=== PATIENT | female | born 1975 | race Caucasian/White ===

== ENCOUNTER 2018-01-07 09:19 | Emergency (ER) | payer BC ==
--- NOTE | 2018-01-07 10:19 | EDM.PDOC ---
ED HPI GENERAL MEDICAL PROBLEM - General Chief Complaint: General Stated Complaint: CHEST PAIN YESTERDAY/RT ARM THROBBING Time Seen by Provider: 01/07/18 09:55 Source of Information: Reports: Patient History Limitations: Reports: No Limitations - History of Present Illness INITIAL COMMENTS - FREE TEXT/NARRATIVE: 45-year-old female, otherwise healthy presents with a variety of pain complaints. It started yesterday with left-sided chest discomfort and left eye pain. She did not have significant shortness of breath, pleuritic pain, or cough. The eye pain resolved overnight and the chest pain has lessened, but now she has deep right arm pain especially in the forearm. It hurts to palpate the forearm. She has no bruising, edema, swelling, or recent trauma. Denies nausea or vomiting. She wanted talk to somebody at the clinic so called regarding her symptoms and they sent her to the emergency room. Onset: Sudden (Symptoms started fairly suddenly yesterday afternoon) Location: Reports: Face, Chest, Upper Extremity, Left, Upper Extremity, Right Quality: Reports: Ache, Burning Severity: Moderate Associated Symptoms: Reports: Other (Had some chills overnight). 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 Denies: Fever HEENT: Reports: Eye Pain (Left eye pain yesterday, resolved) Respiratory: Denies: Shortness of Breath, Cough Cardiovascular: Reports: Chest Pain. Denies: Palpitations GI/Abdominal: Denies: Abdominal Pain, Nausea, Vomiting : Reports: No Symptoms Musculoskeletal: Reports: Arm Pain (Bilateral, right worse than left) Skin: Reports: No Symptoms Neurological: Denies: Paresthesia ED EXAM, GENERAL - Physical Exam Exam: See Below Exam Limited By: No Limitations General Appearance: Alert, No Apparent Distress, Anxious Eye Exam: Bilateral Eye: EOMI Head: Atraumatic Neck: Supple Respiratory/Chest: No Respiratory Distress, Lungs Clear, Other (I could reproduce a small amount of left anterior chest wall discomfort with palpation) Cardiovascular: Regular Rate, Rhythm. No: Extra Beats GI/Abdominal: Soft, Non-Tender Extremities: Arm Pain (She has tenderness to palpation of the right forearm especially flexor surface). No: Pedal Edema Neurological: Alert, Oriented, No Motor/Sensory Deficits EKG INTERPRETATION Rhythm: NSR Course - Vital Signs Last Recorded V/S: Last Vital Signs Temp 99.0 F 01/07/18 09:51 Pulse 71 01/07/18 11:12 Resp 18 01/07/18 11:12 BP 94/55 L 01/07/18 11:12 Pulse Ox 100 01/07/18 11:12 - Orders/Labs/Meds Orders: Active Orders 24 hr Category Date Time Status EKG Documentation Completion [RC] ASDIRECTED Care 01/07/18 10:11 Active EKG 12 Lead [EK] Routine Ther 01/07/18 10:10 Ordered Labs: Laboratory Tests 01/07/18 01/07/18 01/07/18 Range/Units 10:31 10:31 10:31 WBC 5.6 (4.5-11.0) K/uL RBC 4.54 (3.30-5.50) M/uL Hgb 12.7 (12.0-15.0) g/dL Hct 38.2 (36.0-48.0) % MCV 84 (80-98) fL MCH 28 (27-31) pg MCHC 33 (32-36) % Plt Count 315 (150-400) K/uL Neut % (Auto) 64 (36-66) % Lymph % (Auto) 26 (24-44) % [place] % (Auto) 7 H (2-6) % Eos % (Auto) 3 (2-4) % Baso % (Auto) 1 (0-1) % ESR 17 (0-25) mm/hr Sodium 139 L (140-148) mmol/L Potassium 4.5 (3.6-5.2) mmol/L Chloride 105 (100-108) mmol/L Carbon Dioxide 26 (21-32) mmol/L Anion Gap 12.5 (5.0-14.0) mmol/L BUN 10 (7-18) mg/dL Creatinine 1.0 (0.6-1.0) mg/dL Est Cr Clr Drug Dosing 64.58 mL/min Estimated GFR (MDRD) > 60 (>60) Glucose 99 (74-106) mg/dL Calcium 8.6 (8.5-10.1) mg/dL Total Bilirubin 0.7 (0.2-1.0) mg/dL AST 18 (15-37) U/L ALT 27 D (12-78) U/L Alkaline Phosphatase 45 L (46-116) U/L Troponin I < 0.017 (0.000-0.056) ng/mL Total Protein 7.3 (6.4-8.2) g/dL Albumin 4.0 (3.4-5.0) g/dL Globulin 3.3 (2.3-3.5) g/dL Albumin/Globulin Ratio 1.2 (1.2-2.2) Urine HCG, Qual 01/07/18 Range/Units 10:59 WBC (4.5-11.0) K/uL RBC (3.30-5.50) M/uL Hgb (12.0-15.0) g/dL Hct (36.0-48.0) % MCV (80-98) fL MCH (27-31) pg MCHC (32-36) % Plt Count (150-400) K/uL Neut % (Auto) (36-66) % Lymph % (Auto) (24-44) % [place] % (Auto) (2-6) % Eos % (Auto) (2-4) % Baso % (Auto) (0-1) % ESR (0-25) mm/hr Sodium (140-148) mmol/L Potassium (3.6-5.2) mmol/L Chloride (100-108) mmol/L Carbon Dioxide (21-32) mmol/L Anion Gap (5.0-14.0) mmol/L BUN (7-18) mg/dL Creatinine (0.6-1.0) mg/dL Est Cr Clr Drug Dosing mL/min Estimated GFR (MDRD) (>60) Glucose (74-106) mg/dL Calcium (8.5-10.1) mg/dL Total Bilirubin (0.2-1.0) mg/dL AST (15-37) U/L ALT (12-78) U/L Alkaline Phosphatase (46-116) U/L Troponin I (0.000-0.056) ng/mL Total Protein (6.4-8.2) g/dL Albumin (3.4-5.0) g/dL Globulin (2.3-3.5) g/dL Albumin/Globulin Ratio (1.2-2.2) Urine HCG, Qual Negative - Re-Assessments/Exams Free Text/Narrative Re-Assessment/Exam: 01/07/18 10:28 EKG was obtained which is normal. CBC, CMP, sedimentation rate and troponin were obtained along with a UA and urine . If the urine is negative we'll proceed with a two-view chest x-ray. 01/07/18 11:58 All labs were negative, sedimentation rate was normal. The two-view chest x-ray was then done which is also normal. Patient will take an anti-inflammatory for a couple of days and return if worsening. Discharged with a diagnosis of atypical chest discomfort. Departure - Departure Time of Disposition: 12:41 Disposition: Home, Self-Care 01 Condition: Good Clinical Impression: Chest pain, atypical - Discharge Information Instructions: Nonspecific Chest Pain, [id number] Referrals: PCP,None [Primary Care Provider] - Forms: ED Department Discharge Care Plan Goals: A regular dose of ibuprofen or naproxen may help over the next several days. Increase activity as tolerated and return anytime if you are worsening or develop other concerns. - My Orders Last 24 Hours: My Active Orders 01/07/18 10:10 EKG 12 Lead [EK] Routine 01/07/18 10:11 EKG Documentation Completion [RC] ASDIRECTED - Assessment/Plan Last 24 Hours: My Active Orders 01/07/18 10:10 EKG 12 Lead [EK] Routine 01/07/18 10:11 EKG Documentation Completion [RC] ASDIRECTED
[2018-01-07 11:13] VITALS: BP 94/55
--- NOTE | 2018-01-07 11:53 | CR ---
Chest 2V HISTORY: Dyspnea COMPARISON: None FINDINGS: Cardiac size and pulmonary vessels normal. There are no infiltrates or effusions. No pneumo thorax. The osseous structures appear normal. IMPRESSION: No acute pulmonary disease.
== END 2018-01-07 12:10 | disposition home or self-care (01) ==
LOC: JP.ED 09:19
DX: R07.89 Other chest pain (principal); Z88.8 Allergy status to other drugs, medicaments and biological substances
CPT/HCPCS: 36415; 71046; 71046-26; 80053; 81025; 84484; 85025; 85651; 93005; 99285-25

== ENCOUNTER 2019-01-30 05:55 | Inpatient (IN) | payer BC, MEDICAID ==
[2019-01-30] MEDS ORDERED: Oxytocin 10 Units/1 ML SDV ONE ×2 (06:37→07:18)
[2019-01-30] MEDS ORDERED: Lactated Ringers 1,000 ML IV SCH (06:50)
[2019-01-30] MEDS ORDERED: Ondansetron 4 MG/2 ML SDV ONE (07:18)
[2019-01-30] MEDS ORDERED: Lactated Ringers 1,000 ML ONE (07:19)
[2019-01-30] MEDS ORDERED: Phenylephrine 1% 10 MG/ML SDV ONE (07:20)
[2019-01-30] MEDS ORDERED: Sodium Chloride 0.9% 20 ML ONE (07:21)
[2019-01-30] MEDS ORDERED: ePHEDrine 50 MG/ML SDV ONE (07:21)
[2019-01-30] MEDS ORDERED: ceFAZolin 1 GM Vial ONE (07:50)
[2019-01-30] MEDS ORDERED: fentaNYL 100 MCG/2 ML SDV ONE ×2 (08:26→08:44)
[2019-01-30] MEDS ORDERED: Ondansetron 4 MG/2 ML SDV IVPUSH PRN (08:59)
[2019-01-30] MEDS ORDERED: Non-Formulary Medication 1 Each (Magnesium [Magnesium] 250 MG) PO SCH (09:00)
[2019-01-30] MEDS ORDERED: Non-Formulary Medication 1 Each (Prenatal Vits #93/Iron Fum/Fa [Prenatal Formula Tablet] 1 PO SCH (09:00)
[2019-01-30] MEDS: fentaNYL 100 MCG/2 ML SDV IVPUSH PRN ×11 (09:34→23:39)
[2019-01-30] MEDS ORDERED: Carboprost Tromethamine 250 MCG/1 ML Amp IM ONE (09:37)
[2019-01-30] MEDS ORDERED: Carboprost Tromethamine 250 MCG/1 ML Amp ONE (09:39)
[2019-01-30] MEDS: Lactated Ringers 1,000 ML IV SCH ×2 (10:13→18:38)
[2019-01-30] MEDS: Labetalol 100 MG Tab PO SCH (10:15)
--- NOTE | 2019-01-30 11:46 | OR ---
DATE OF PROCEDURE: 01/30/2019 PREOPERATIVE DIAGNOSIS: Macrosomia x3 prior pregnancies requiring vacuum extraction, 39 and 1/7th weeks' gestation . POSTOPERATIVE DIAGNOSIS: Macrosomia x3 prior pregnancies requiring vacuum extraction, 39 and 1/7th weeks' gestation . PROCEDURE: section. SURGEON: Juancho Martinez MD. ASSISTANTS: Phyllis Cuello, nurse cripple cutter student; Rosalia Garcia, certified nurse cripple cutter for the baby. Per ACOG standard of care guidelines, this operation requires a therapy assistant. ANESTHESIA: Subarachnoid block. INDICATION: This 43-year-old white female is at 39 and 1/7th weeks' gestation with her current . She has eight living children. The last three deliveries were found to have macrosomia with weights in the 10-pound range. All required vacuum extraction. A request was made for section. I counseled her for this, and she gave her informed consent to proceed. DESCRIPTION OF PROCEDURE: After adequate spinal anesthesia was obtained, a Rocha catheter was placed. A wedge was placed under her right flank. Her abdomen was prepped and draped in the usual sterile fashion. Time-out was held. A Pfannenstiel incision was made. This was carried deep using Bovie cautery to the fascia. The fascia was incised transversely. Upper and lower subfascial flaps were developed. The muscles in the midline were , and the underlying peritoneum was elevated and incised. The peritoneal incision was extended superiorly and inferiorly to the length of the flaps using Bovie cautery while protecting the underlying structures. The bladder flap was dissected free from the lower uterine segment. A transverse lower uterine segment incision was made releasing , what appeared to be, normal amniotic fluid. The incision was extended laterally in both directions bluntly. The child's head was delivered. Its nose and mouth were suctioned dry by Phyllis Cuello. The child's body was then delivered. Delayed cord clamping for about a minute was performed. The cord was then doubly clamped and divided, and Phyllis Cuello took the child over to Rosalia Garcia. The two of them attended to the child. This was a girl with APGARS of 9 and 10. Cord blood was collected. The uterus was delivered up on to the anterior abdominal wall. The placenta was delivered. It appeared to have a three- vessel cord. Residual membranes were removed. IV Pitocin was started by the Anesthesia Service and 10 units of Pitocin was directly injected into the uterine body. The transverse lower uterine segment incision was then closed with a running locking stitch of #1 Vicryl. A second running locking stitch of #1 Vicryl was placed over the first to further bolster the closure. The retrouterine space was irrigated and suctioned dry. The bladder flap was re- attached up over the lower uterine segment with a running stitch of #1 Vicryl. The uterus was returned to the abdominal cavity. The muscles and peritoneum in the midline were closed with a running stitch of #2 Vicryl. The incision was irrigated and suctioned dry. The fascia was closed with a running stitch of #2 Vicryl. The incision was irrigated and suctioned dry. 4-0 Vicryl using a subcuticular stitch was placed to approximate the skin. Dermabond was applied. The patient tolerated the procedure well and was brought from the operating room in a good condition. Juancho Martinez MD /[id number] MTDD
[2019-01-30] MEDS: Magnesium Oxide 400 MG Tab PO SCH (14:09)
[2019-01-30] MEDS: Prenatal Multivitamin with Calcium/Folic Acid/Iron Tab PO SCH (14:11)
[2019-01-30] MEDS ORDERED: Acetaminophen 500 MG Tab PO PRN (17:26)
[2019-01-30] MEDS: Ibuprofen 600 MG Tab PO PRN ×2 (18:14→23:42)
[2019-01-30] MEDS ORDERED: Meperidine PF 50 MG/ML Syringe IM PRN (18:39)
[2019-01-30] MEDS ORDERED: hydrOXYzine HCl 100 MG/2 ML SDV IM PRN (18:39)
[2019-01-31] MEDS ORDERED: Lanolin 100% Cream 40 GM Tube TOP PRN (03:41)
[2019-01-31] MEDS: Ibuprofen 600 MG Tab PO PRN ×2 (05:11→14:02)
[2019-01-31] MEDS ORDERED: D5 1/2 NS w/ 20 mEq/L KCl 1,000 ML IV SCH (07:15)
[2019-01-31] MEDS: fentaNYL 100 MCG/2 ML SDV IVPUSH PRN ×2 (07:55→10:11)
[2019-01-31] MEDS: Labetalol 100 MG Tab PO SCH (08:38)
[2019-01-31] MEDS: Magnesium Oxide 400 MG Tab PO SCH (08:39)
[2019-01-31] MEDS: Docusate Sodium 100 MG Cap PO SCH ×2 (08:39→20:29)
[2019-01-31] MEDS: Acetaminophen/oxyCODONE 325-5 MG Tab PO PRN ×4 (08:39→20:28)
[2019-01-31] MEDS: Prenatal Multivitamin with Calcium/Folic Acid/Iron Tab PO SCH (08:39)
[2019-01-31] MEDS: Ferrous Sulfate 325 MG Tab PO SCH ×2 (08:39→16:38)
--- NOTE | 2019-01-31 15:41 | PCM.SURGPN ---
- General Info Date of Service: 01/31/19 Date of Surgery/Procedure: 01/30/19 POD#: 1 Post-Op Diagnosis: section Functional Status: Reports: Pain Controlled (Wants to avoid pain medication, is taking as needed. ), Tolerating Diet, Ambulating, Urinating (Rocha), Incentive Spirometry - Review of Systems General: Reports: No Symptoms, Appetite (Hungry) HEENT: Reports: No Symptoms Pulmonary: Reports: No Symptoms Cardiovascular: Reports: No Symptoms Gastrointestinal: Reports: No Symptoms Genitourinary: Reports: No Symptoms Musculoskeletal: Reports: No Symptoms Skin: Reports: No Symptoms Neurological: Reports: No Symptoms Psychiatric: Reports: No Symptoms - Patient Data Vitals - Most Recent: Last Vital Signs Temp 98.1 F 01/31/19 10:16 Pulse 81 01/31/19 10:16 Resp 16 01/31/19 10:16 BP 102/49 L 01/31/19 10:16 Pulse Ox 92 L 01/31/19 10:16 Weight - Most Recent: 183 lb 9.6 oz I&O - Last 24 Hours: Intake & Output 01/31/19 01/31/19 01/31/19 06:59 14:59 22:59 Intake Total 1072 Output Total 2100 1300 Balance -1028 -1300 Lab Results Last 24 Hrs: Laboratory Results - last 24 hr 01/31/19 01/31/19 Range/Units 04:30 04:30 WBC 14.0 H (4.5-11.0) K/uL RBC 3.18 L (3.30-5.50) M/uL Hgb 9.1 L D (12.0-15.0) g/dL Hct 27.9 L (36.0-48.0) % MCV 88 (80-98) fL MCH 29 (27-31) pg MCHC 33 (32-36) % Plt Count 291 (150-400) K/uL Sodium 136 L (140-148) mmol/L Potassium 4.3 (3.6-5.2) mmol/L Chloride 106 (100-108) mmol/L Carbon Dioxide 21 (21-32) mmol/L Anion Gap 13.3 (5.0-14.0) mmol/L BUN 12 D (7-18) mg/dL Creatinine 0.6 (0.6-1.0) mg/dL Est Cr Clr Drug Dosing 109.92 mL/min Estimated GFR (MDRD) > 60 (>60) Glucose 103 (74-106) mg/dL Calcium 8.7 (8.5-10.1) mg/dL Med Orders - Current: Current Medications Acetaminophen (Tylenol Extra Strength) 1,000 mg PO Q6H PRN PRN Reason: Pain (mild 1-3) Last Admin: 01/31/19 02:03 Dose: 1,000 mg Docusate Sodium (Colace) 100 mg PO BID [facility] Last Admin: 01/31/19 08:39 Dose: 100 mg Emollient Ointment (Lansinoh Hpa) 0 gm TOP ASDIRECTED PRN PRN Reason: Pain Ferrous Sulfate [facility]) [facility] Last Admin: 01/31/19 08:39 Dose: 325 mg Hydroxyzine HCl (Vistaril) 50 mg IM ONETIME PRN PRN Reason: Pain (severe 7-10) Lactated Ringer's (Ringers, Lactated) 1,000 mls @ 125 mls/hr IV ASDIRECTED [facility] Last Admin: 01/30/19 18:38 Dose: 125 mls/hr Potassium Chloride/Dextrose/Sod Cl (D5 1/2 Ns W/ 20 Meq/L Kcl) 1,000 mls @ 25 mls/hr IV ASDIRECTED [facility] Last Admin: 01/31/19 10:12 Dose: 25 mls/hr Ibuprofen (Motrin) 600 mg PO Q6H [facility] Labetalol HCl (Normodyne) 100 mg PO DAILY [facility] Last Admin: 01/31/19 08:38 Dose: Not Given Magnesium Oxide (Magnesium Oxide) 200 mg PO DAILY [facility] Last Admin: 01/31/19 08:39 Dose: 200 mg Meperidine HCl (Demerol) 50 mg IM ONETIME PRN PRN Reason: Pain (severe 7-10) Ondansetron HCl (Zofran) 4 mg IVPUSH Q6H PRN PRN Reason: Nausea/Vomiting Last Admin: 01/30/19 10:12 Dose: 4 mg Oxycodone/Acetaminophen (Percocet 325-5 Mg) 1 - 2 tab PO Q4H PRN PRN Reason: Abdominal Pain Last Admin: 01/31/19 12:22 Dose: 2 tab Prenat Multivit/[place]/Iron/Folic Ac ( Plus Iron) 1 each PO DAILY [facility] Last Admin: 01/31/19 08:39 Dose: 1 each Discontinued Medications Carboprost Tromethamine (Hemabate Ds) 250 mcg IM ONETIME ONE Stop: 01/30/19 09:38 Last Admin: 01/30/19 09:44 Dose: 250 mcg Carboprost Tromethamine (Hemabate Ds) Confirm Administered Dose 250 mcg .ROUTE .STK-MED ONE Stop: 01/30/19 09:40 Last Admin: 01/30/19 10:15 Dose: Not Given Cefazolin Sodium (Ancef) Confirm Administered Dose 2 gm .ROUTE .STK-MED ONE Stop: 01/30/19 07:51 Ephedrine Sulfate (Ephedrine Sulfate) Confirm Administered Dose 50 mg .ROUTE .STK-MED ONE Stop: 01/30/19 07:22 Fentanyl (Sublimaze) Confirm Administered Dose 100 mcg .ROUTE .STK-MED ONE Stop: 01/30/19 08:27 Fentanyl (Sublimaze) Confirm Administered Dose 100 mcg .ROUTE .STK-MED ONE Stop: 01/30/19 08:45 Fentanyl (Sublimaze) 50 mcg IVPUSH Q1H PRN PRN Reason: Pain (severe 7-10) Last Admin: 01/31/19 10:11 Dose: 50 mcg Lactated Ringer's (Ringers, Lactated) 1,000 mls @ 100 mls/hr IV ASDIRECTED [facility] Last Admin: 01/30/19 06:52 Dose: 100 mls/hr Lactated Ringer's (Ringers, Lactated) Confirm Administered Dose 1,000 mls @ as directed .ROUTE .STK-MED ONE Stop: 01/30/19 07:20 Sodium Chloride (Normal Saline) Confirm Administered Dose 20 mls @ as directed .ROUTE .STK-MED ONE Stop: 01/30/19 07:22 Ibuprofen (Motrin) 600 mg PO Q6H PRN PRN Reason: Pain (mild 1-3) Last Admin: 01/31/19 14:02 Dose: 600 mg Ondansetron HCl (Zofran) Confirm Administered Dose 4 mg .ROUTE .STK-MED ONE Stop: 01/30/19 07:19 Oxytocin (Pitocin) Confirm Administered Dose 10 unit .ROUTE .STK-MED ONE Stop: 01/30/19 06:38 Last Admin: 01/30/19 08:36 Dose: 10 unit Oxytocin (Pitocin) Confirm Administered Dose 20 unit .ROUTE .STK-MED ONE Stop: 01/30/19 07:19 Phenylephrine HCl (Jeff-Synephrine) Confirm Administered Dose 10 mg .ROUTE .STK- MED ONE Stop: 01/30/19 07:21 - Exam Wound/Incisions: Dressing Dry and Intact, No Drainage General: Alert, Oriented, Cooperative, No Acute Distress Lungs: Clear to Auscultation, Normal Respiratory Effort Cardiovascular: Regular Rate, Regular Rhythm GI/Abdominal Exam: Normal Bowel Sounds, Soft Extremities: Normal Inspection Skin: Warm, Dry, Intact Neurological: No New Focal Deficit Psy/Mental Status: Alert, Normal Affect, Normal Mood - Problem List Review Problem List Initiated/Reviewed/Updated: Yes - My Orders Last 24 Hours: Active Orders 24 hr Category Date Time Status Regular Diet [DIET] Diet 01/31/19 Breakfast Active CBC W/O DIFF,HEMOGRAM [HEME] DAILY Lab 02/01/19 05:11 Ordered Acetaminophen [Tylenol Extra Strength] Med 01/30/19 17:26 Active 1,000 mg PO Q6H PRN Acetaminophen/oxyCODONE [Percocet 325-5 MG] Med 01/31/19 07:33 Active 1 - 2 tab PO Q4H PRN D5 1/2 NS w/ 20 mEq/L KCl 1,000 ml Med 01/31/19 07:15 Active IV ASDIRECTED Docusate Sodium [Colace] Med 01/31/19 09:00 Active 100 mg PO BID Ferrous Sulfate Med 01/31/19 08:00 Active 325 mg PO BIDMEALS Ibuprofen [Motrin] Med 01/31/19 20:00 Active 600 mg PO Q6H Lanolin [Lansinoh HPA] Med 01/31/19 03:41 Active 0 gm TOP ASDIRECTED PRN Meperidine [Demerol] Med 01/30/19 18:39 Active 50 mg IM ONETIME PRN hydrOXYzine HCl [Vistaril] Med 01/30/19 18:39 Active 50 mg IM ONETIME PRN Medication Orders Acetaminophen (Tylenol Extra Strength) 1,000 mg PO Q6H PRN PRN Reason: Pain (mild 1-3) Last Admin: 01/31/19 02:03 Dose: 1,000 mg Docusate Sodium (Colace) 100 mg PO BID [facility] Last Admin: 01/31/19 08:39 Dose: 100 mg Emollient Ointment (Lansinoh Hpa) 0 gm TOP ASDIRECTED PRN PRN Reason: Pain Ferrous Sulfate (Ferrous Sulfate) 325 mg PO BIDMEALS [facility] Last Admin: 01/31/19 08:39 Dose: 325 mg Hydroxyzine HCl (Vistaril) 50 mg IM ONETIME PRN PRN Reason: Pain (severe 7-10) Lactated Ringer's (Ringers, Lactated) 1,000 mls @ 125 mls/hr IV ASDIRECTED [facility] Last Admin: 01/30/19 18:38 Dose: 125 mls/hr Infusion: 01/30/19 18:13 Dose: 125 mls/hr Admin: 01/30/19 10:13 Dose: 125 mls/hr Potassium Chloride/Dextrose/Sod Cl (D5 1/2 Ns W/ 20 Meq/L Kcl) 1,000 mls @ 25 mls/hr IV ASDIRECTED [facility] Last Admin: 01/31/19 10:12 Dose: 25 mls/hr Ibuprofen (Motrin) 600 mg PO Q6H [facility] Labetalol HCl (Normodyne) 100 mg PO DAILY [facility] Last Admin: 01/31/19 08:38 Dose: Admin: 01/30/19 10:15 Dose: Magnesium Oxide (Magnesium Oxide) 200 mg PO DAILY [facility] Last Admin: 01/31/19 08:39 Dose: 200 mg Admin: 01/30/19 14:09 Dose: Not Given Meperidine HCl (Demerol) 50 mg IM ONETIME PRN PRN Reason: Pain (severe 7-10) Ondansetron HCl (Zofran) 4 mg IVPUSH Q6H PRN PRN Reason: Nausea/Vomiting Last Admin: 01/30/19 10:12 Dose: 4 mg Oxycodone/Acetaminophen (Percocet 325-5 Mg) 1 - 2 tab PO Q4H PRN PRN Reason: Abdominal Pain Last Admin: 01/31/19 12:22 Dose: 2 tab Admin: 01/31/19 08:39 Dose: 2 tab Prenat Multivit/Telecommunications Engineer/Iron/Folic Ac ( Plus Iron) 1 each PO DAILY [facility] Last Admin: 01/31/19 08:39 Dose: 1 each Admin: 01/30/19 14:11 Dose: Not Given - Assessment Assessment (Free Text/Narrative):: Doing well. - Plan Plan (Free Text/Narrative):: Regular diet. D/C Aj.
[2019-01-31] MEDS: Ibuprofen 600 MG Tab PO SCH (20:02)
[2019-02-01] MEDS: Ibuprofen 600 MG Tab PO SCH ×4 (01:43→20:13)
[2019-02-01] MEDS: Acetaminophen/oxyCODONE 325-5 MG Tab PO PRN ×6 (01:46→20:14)
[2019-02-01] MEDS: Ferrous Sulfate 325 MG Tab PO SCH ×2 (07:50→18:08)
[2019-02-01] MEDS: Magnesium Oxide 400 MG Tab PO SCH (10:26)
[2019-02-01] MEDS: Prenatal Multivitamin with Calcium/Folic Acid/Iron Tab PO SCH (10:27)
[2019-02-01] MEDS: Docusate Sodium 100 MG Cap PO SCH ×2 (10:27→20:13)
[2019-02-01] MEDS: Labetalol 100 MG Tab PO SCH (10:35)
[2019-02-02] MEDS: Ibuprofen 600 MG Tab PO SCH ×4 (01:13→13:56)
[2019-02-02] MEDS: Acetaminophen/oxyCODONE 325-5 MG Tab PO PRN ×3 (01:28→10:35)
[2019-02-02] MEDS: Magnesium Oxide 400 MG Tab PO SCH (08:01)
[2019-02-02] MEDS: Prenatal Multivitamin with Calcium/Folic Acid/Iron Tab PO SCH (08:03)
[2019-02-02] MEDS: Ferrous Sulfate 325 MG Tab PO SCH (08:03)
[2019-02-02] MEDS: Docusate Sodium 100 MG Cap PO SCH (08:03)
[2019-02-02] MEDS: Labetalol 100 MG Tab PO SCH (08:06)
--- NOTE | 2019-02-02 09:38 | PCM.DCSUM1 ---
Discharge Summary - Hospital Course Free Text/Narrative:: This 43 year old white female has 8 living children and was admitted on January for a section. The indication was her last three deliveries were for babies weighing greater than ten pounds and each required vacuum extraction. Her section was unremarkable delivering a girl with APGARS of 9 and 10. Her post operative course was satisfactory. She currently is eating, can care for child, and wants to go home. She is discharged at this time in good condition. HPI Initial Comments: section. Brief History: See above narrative. Diagnosis: Stroke: No - Discharge Data Discharge Date: 02/02/19 Discharge Disposition: Home, Self-Care 01 Condition: Good - Patient Summary/Data Consults: Consultations 01/30/19 09:00 Respiratory Care Assess and Treatment [CONS] Routine Comment: Physician Instructions: Post-Op Pneumonia Prevention - Patient Instructions Diet: Usual Diet as Tolerated Activity: No Lifting Over 10 Pounds (For six weeks except as needed to care for child), No Strenuous Activities Driving, Other: Do not drive while taking narcotic pain medication Showering/Bathing: May Shower, No Tub Bathing/Swimming Notify Provider of: Fever, Increased Pain, Swelling and Redness, Drainage, Nausea and/or Vomiting - Discharge Plan *PRESCRIPTION DRUG MONITORING PROGRAM REVIEWED*: No *COPY OF PRESCRIPTION DRUG MONITORING REPORT IN PATIENT VIVIEN: No Prescriptions/Med Rec: Acetaminophen/oxyCODONE [Percocet 325-5 MG] 1 - 2 tab PO Q4H PRN #30 tablet PRN Reason: Abdominal Pain Home Medications: Home Meds Vits #93/Iron Fum/FA [ Formula Tablet] 1 tab PO DAILY 08/14/18 [History] Aspirin [Halfprin] 81 mg PO DAILY 01/26/19 [History] Magnesium 250 mg PO DAILY 01/26/19 [History] Acetaminophen/oxyCODONE [Percocet 325-5 MG] 1 - 2 tab PO Q4H PRN #30 tablet 09/12 [Rx] Docusate Sodium [Colace] 100 mg PO BID cap 02/02/19 [Rx] Ferrous Sulfate 325 mg PO WITHBREAKFAST #60 tablet 02/02/19 [Rx] Ibuprofen [Motrin] 600 mg PO Q6H tablet 02/02/19 [Rx] Lanolin [Lansinoh HPA] 0 gm TOP ASDIRECTED PRN tube 02/02/19 [Rx] Patient Handouts: Hydroxyzine injection Referrals: Juancho Martinez MD [Physician] - (See me two weeks from tomorrow in [facility] 2018) - Discharge Summary/Plan Comment DC Time >30 min.: Yes - Review of Systems General: Reports: No Symptoms HEENT: Reports: No Symptoms Pulmonary: Reports: No Symptoms Cardiovascular: Reports: No Symptoms Gastrointestinal: Reports: No Symptoms Genitourinary: Reports: No Symptoms Musculoskeletal: Reports: No Symptoms Skin: Reports: No Symptoms Neurological: Reports: No Symptoms Psychiatric: Reports: No Symptoms - Patient Data Vitals - Most Recent: Last Vital Signs Temp 98.7 F 02/02/19 07:19 Pulse 77 02/02/19 08:06 Resp 16 02/02/19 07:19 BP 101/54 L 02/02/19 08:06 Pulse Ox 96 02/02/19 07:19 Weight - Most Recent: 183 lb 9.6 oz I&O - Last 24 hours: Intake & Output 02/01/19 02/02/19 02/02/19 22:59 06:59 14:59 Intake Total 500 Balance 500 Med Orders - Current: Current Medications Acetaminophen (Tylenol Extra Strength) 1,000 mg PO Q6H PRN PRN Reason: Pain (mild 1-3) Last Admin: 01/31/19 02:03 Dose: 1,000 mg Docusate Sodium (Colace) 100 mg PO BID [facility] Last Admin: 02/02/19 08:03 Dose: 100 mg Emollient Ointment (Lansinoh Hpa) 0 gm TOP ASDIRECTED PRN PRN Reason: Pain Ferrous Sulfate (Ferrous Sulfate) 325 mg PO BIDMEALS [facility] Last Admin: 02/02/19 08:03 Dose: 325 mg Hydroxyzine HCl (Vistaril) 50 mg IM ONETIME PRN PRN Reason: Pain (severe 7-10) Lactated Ringer's (Ringers, Lactated) 1,000 mls @ 125 mls/hr IV ASDIRECTED [facility] Last Admin: 01/30/19 18:38 Dose: 125 mls/hr Potassium Chloride/Dextrose/Sod Cl (D5 1/2 Ns W/ 20 Meq/L Kcl) 1,000 mls @ 25 mls/hr IV ASDIRECTED [facility] Last Admin: 01/31/19 10:12 Dose: 25 mls/hr Ibuprofen (Motrin) 600 mg PO Q6H [facility] Last Admin: 02/02/19 08:02 Dose: 600 mg Labetalol HCl (Normodyne) 100 mg PO DAILY [facility] Last Admin: 02/02/19 08:06 Dose: Not Given Magnesium Oxide (Magnesium Oxide) 200 mg PO DAILY [facility] Last Admin: 02/02/19 08:01 Dose: 200 mg Meperidine HCl (Demerol) 50 mg IM ONETIME PRN PRN Reason: Pain (severe 7-10) Ondansetron HCl (Zofran) 4 mg IVPUSH Q6H PRN PRN Reason: Nausea/Vomiting Last Admin: 01/30/19 10:12 Dose: 4 mg Oxycodone/Acetaminophen (Percocet 325-5 Mg) 1 - 2 tab PO Q4H PRN PRN Reason: Abdominal Pain Last Admin: 02/02/19 06:16 Dose: 2 tab Prenat Multivit/[place]/Iron/Folic Ac ( Plus Iron) 1 each PO DAILY [facility] Last Admin: 02/02/19 08:03 Dose: 1 each Discontinued Medications Carboprost Tromethamine (Hemabate Ds) 250 mcg IM ONETIME ONE Stop: 01/30/19 09:38 Last Admin: 01/30/19 09:44 Dose: 250 mcg Carboprost Tromethamine (Hemabate Ds) Confirm Administered Dose 250 mcg .ROUTE .STK-MED ONE Stop: 01/30/19 09:40 Last Admin: 01/30/19 10:15 Dose: Not Given Cefazolin Sodium (Ancef) Confirm Administered Dose 2 gm .ROUTE .STK-MED ONE Stop: 01/30/19 07:51 Ephedrine Sulfate (Ephedrine Sulfate) Confirm Administered Dose 50 mg .ROUTE .STK-MED ONE Stop: 01/30/19 07:22 Fentanyl (Sublimaze) Confirm Administered Dose 100 mcg .ROUTE .STK-MED ONE Stop: 01/30/19 08:27 Fentanyl (Sublimaze) Confirm Administered Dose 100 mcg .ROUTE .STK-MED ONE Stop: 01/30/19 08:45 Fentanyl (Sublimaze) 50 mcg IVPUSH Q1H PRN PRN Reason: Pain (severe 7-10) Last Admin: 01/31/19 10:11 Dose: 50 mcg Lactated Ringer's (Ringers, Lactated) 1,000 mls @ 100 mls/hr IV ASDIRECTED [facility] Last Admin: 01/30/19 06:52 Dose: 100 mls/hr Lactated Ringer's (Ringers, Lactated) Confirm Administered Dose 1,000 mls @ as directed .ROUTE .STK-MED ONE Stop: 01/30/19 07:20 Sodium Chloride (Normal Saline) Confirm Administered Dose 20 mls @ as directed .ROUTE .STK-MED ONE Stop: 01/30/19 07:22 Ibuprofen (Motrin) 600 mg PO Q6H PRN PRN Reason: Pain (mild 1-3) Last Admin: 01/31/19 14:02 Dose: 600 mg Ondansetron HCl (Zofran) Confirm Administered Dose 4 mg .ROUTE .STK-MED ONE Stop: 01/30/19 07:19 Oxytocin (Pitocin) Confirm Administered Dose 10 unit .ROUTE .STK-MED ONE Stop: 01/30/19 06:38 Last Admin: 01/30/19 08:36 Dose: 10 unit Oxytocin (Pitocin) Confirm Administered Dose 20 unit .ROUTE .STK-MED ONE Stop: 01/30/19 07:19 Phenylephrine HCl (Jeff-Synephrine) Confirm Administered Dose 10 mg .ROUTE .STK- MED ONE Stop: 01/30/19 07:21 - Exam General: Reports: Alert, Oriented, Cooperative, No Acute Distress Lungs: Reports: Clear to Auscultation Cardiovascular: Reports: Regular Rate GI/Abdominal Exam: Normal Bowel Sounds, Soft, Non-Tender Back Exam: Reports: Normal Inspection Extremities: Normal Inspection Skin: Reports: Warm, Dry, Intact Neurological: Reports: No New Focal Deficit Psy/Mental Status: Reports: Alert, Normal Affect, Normal Mood Discharge Operative/Procedures - Procedures Performed Operations: section
[2019-02-02 11:31] VITALS: BP 110/57
== END 2019-02-02 13:15 | disposition home or self-care (01) | DRG 540 ==
LOC: JP.SDS 05:55 → JP.MS 08:12
PROVIDERS: ADMIT Surgery; ATTEND Surgery
PROC: 10D00Z1 Extraction of Products of Conception, Low, Open Approach (ICD-10-PCS; principal; 2019-01-30)
PROC: 6A550ZT Pheresis of Cord Blood Stem Cells, Single (ICD-10-PCS; 2019-01-30)
DX: O34.211 Maternal care for low transverse scar from previous cesarean delivery (principal); N85.8 Other specified noninflammatory disorders of uterus; Z3A.39 39 weeks gestation of pregnancy; Z37.0 Single live birth; O75.89 Other specified complications of labor and delivery; Z88.6 Allergy status to analgesic agent
CPT/HCPCS: 36415; 59409; 80048; 80305-QW; 84132; 85027; 86850; 86900; 86901; 88307; A9270-GY; J0690; J2370; J2405; J2590; J3010; J3480; J7120

== ENCOUNTER 2019-02-22 14:00 | Emergency (ER) | payer BC, MEDICAID ==
[2019-02-22 14:28] VITALS: BP 136/53
--- NOTE | 2019-02-22 14:42 | EDM.PDOC ---
<Rashid Orozco - Last Filed: 02/22/19 17:59> ED HPI GENERAL MEDICAL PROBLEM - General Chief Complaint: Abdominal Pain Stated Complaint: LEFT SIDE PAIN Time Seen by Provider: 02/22/19 15:00 Source of Information: Reports: Patient History Limitations: Reports: No Limitations - History of Present Illness INITIAL COMMENTS - FREE TEXT/NARRATIVE: 44-year-old female who had a 1 month ago and had been doing very well was increasing activity on Wednesday felt the pain develop in her left lower abdomen. Over the past 3 days it is gotten much worse, she was assessed briefly in the clinic on Wednesday and there was no evidence of infection and she was reassured at the time. She has not developed a fever but the pain is worsening, she has peritoneal signs and is having difficulty with moving without taking constant ibuprofen and Tylenol. She has a relative who is an internal medicine physician, he recommended she come into the emergency room to get checked for "an abscess". She does have a history of ovarian cysts. Onset: Sudden Duration: Day(s): (3 days ago) Location: Reports: Abdomen (Left lower quadrant) Improves with: Reports: Medication, Rest Worsens with: Reports: Movement Associated Symptoms: Reports: Malaise. Denies: Cough, Fever/Chills, Headaches, Loss of Appetite, Shortness of Breath Treatments EYE CARE PROFESSIONAL: Reports: Acetaminophen, NSAIDS abdomenal Pain Score (Numeric/FACES): 10 - Related Data Allergies Allergy/AdvReac Type Severity Reaction Status Date / Time methylergonovine Allergy Unknown Difficulty Verified 02/22/19 14:26 [From Methergine] Breathing Home Meds: Home Meds Vits #93/Iron Fum/FA [ Formula Tablet] 1 tab PO DAILY 08/14/18 [History] Past Medical History HEENT History: Reports: Impaired Vision Cardiovascular History: Reports: Other (See Below) Other Cardiovascular History: tachycardia with current Gastrointestinal History: Reports: PUD Genitourinary History: Reports: Pyelonephritis RN TEAM LEADER History: Reports: - Infectious Disease History Infectious Disease History: Reports: Chicken Pox - Past Surgical History HEENT Surgical History: Reports: Oral Surgery, Other (See Below) Other HEENT Surgeries/Procedures: wisdom teeth Social & Family History - Family History Cardiac: Reports: [place] Neurological: Reports: CVA Oncologic: Reports: Brain, Uterine, Other (See Below) Other Oncologic Family History: testicular - Caffeine Use Caffeine Use: Reports: None ED ROS GENERAL - Review of Systems Review Of Systems: See Below Constitutional: Reports: Chills, Malaise. Denies: Fever HEENT: Reports: No Symptoms Respiratory: Denies: Shortness of Breath, Cough Cardiovascular: Denies: Chest Pain GI/Abdominal: Reports: Abdominal Pain. Denies: Black Stool, Diarrhea, Nausea, Vomiting : Reports: No Symptoms Skin: Reports: No Symptoms Neurological: Reports: No Symptoms ED EXAM, GI/ABD - Physical Exam Exam: See Below Exam Limited By: No Limitations General Appearance: Alert, Mild Distress (Looks fairly uncomfortable) Eyes: Bilateral: Normal Appearance (No jaundice) Respiratory/Chest: No Respiratory Distress Cardiovascular: Regular Rate, Rhythm GI/Abdominal Exam: Tender (Extremely tender with guarding and rebound in the left lower quadrant, fairly localized pain over the lateral aspect of the incision) Extremities: No Pedal Edema Neurological: Alert, Oriented Psychiatric: Normal Affect, Normal Mood Skin Exam: Warm, Dry, Other (Surgical incision itself looks excellent) Course - Vital Signs Last Recorded V/S: Last Vital Signs Temp 35.9 C 02/22/19 14:33 Pulse 79 02/22/19 14:33 Resp 18 02/22/19 14:33 BP 136/53 L 02/22/19 14:33 Pulse Ox 97 02/22/19 14:33 - Orders/Labs/Meds Labs: Laboratory Tests 02/22/19 02/22/19 02/22/19 Range/Units 14:50 14:50 18:03 WBC 9.6 (4.5-11.0) K/uL RBC 4.68 (3.30-5.50) M/uL Hgb 13.1 D (12.0-15.0) g/dL Hct 39.9 (36.0-48.0) % MCV 85 (80-98) fL MCH 28 (27-31) pg MCHC 33 (32-36) % Plt Count 458 H (150-400) K/uL Neut % (Auto) 71 H (36-66) % Lymph % (Auto) 18 L (24-44) % [place] % (Auto) 6 (2-6) % Eos % (Auto) 4 (2-4) % Baso % (Auto) 1 (0-1) % Sodium 138 L (140-148) mmol/L Potassium 3.8 (3.6-5.2) mmol/L Chloride 103 (100-108) mmol/L Carbon Dioxide 23 (21-32) mmol/L Anion Gap 15.8 H (5.0-14.0) mmol/L BUN 21 H D (7-18) mg/dL Creatinine 0.9 (0.6-1.0) mg/dL Est Cr Clr Drug Dosing 70.32 mL/min Estimated GFR (MDRD) > 60 (>60) Glucose 84 (74-106) mg/dL Calcium 9.2 (8.5-10.1) mg/dL Total Bilirubin 0.5 (0.2-1.0) mg/dL AST 16 (15-37) U/L ALT 21 (12-78) U/L Alkaline Phosphatase 70 (46-116) U/L Total Protein 7.1 (6.4-8.2) g/dL Albumin 3.5 (3.4-5.0) g/dL Globulin 3.6 H (2.3-3.5) g/dL Albumin/Globulin Ratio 1.0 L (1.2-2.2) Urine Color Yellow Urine Appearance Slightly cloudy Urine pH 6.0 (4.5-8.0) Ur Specific [place] 1.010 (1.008-1.030) Urine Protein Negative (NEGATIVE) mg/dL Urine Glucose (UA) Normal (NEGATIVE) mg/dL Urine Ketones 15 H (NEGATIVE) mg/dL Urine Occult Blood Large (NEGATIVE) Urine Nitrite Negative (NEGATIVE) Urine Bilirubin Negative (NEGATIVE) Urine Urobilinogen Normal (NORMAL) mg/dL Ur Leukocyte Esterase Moderate (NEGATIVE) Urine RBC 10-20 H (0-5) Urine WBC 5-10 H (0-5) Ur Epithelial Cells Rare Amorphous Sediment Not seen Urine Bacteria Rare Urine Mucus Not seen Meds: Medications Discontinued Medications Generic Name Dose Route Start Last Admin Trade Name Freq PRN Reason Stop Dose Admin Fentanyl 25 mcg 02/22/19 16:37 02/22/19 16:48 Sublimaze IVPUSH 02/22/19 16:38 25 mcg ONETIME ONE Administration Sodium Chloride 100 mls @ 3 mls/sec 02/22/19 15:15 02/22/19 15:23 Normal Saline IV 3 mls/sec ASDIRECTED [facility] Administration Ceftriaxone Sodium 1 gm/ 50 mls @ 100 mls/hr 02/22/19 19:19 02/22/19 19:23 Sodium Chloride IV 02/22/19 19:48 100 mls/hr ONETIME ONE Administration Ibuprofen 400 mg 02/22/19 16:24 02/22/19 16:30 Motrin PO 02/22/19 16:25 400 mg ONETIME ONE Administration Iopamidol 100 ml 02/22/19 15:15 02/22/19 15:23 Isovue-300 (61%) IV 100 ml . DIRECTED [facility] Administration Sodium Chloride 10 ml 02/22/19 15:09 02/22/19 15:23 Saline Flush FLUSH 02/22/19 15:10 10 ml ONETIME ONE Administration - Re-Assessments/Exams Free Text/Narrative Re-Assessment/Exam: 02/22/19 17:59 Initially patient was fairly uncomfortable, an IV was started. CBC and BMP were obtained. A CT of the abdomen and pelvis with IV contrast was also ordered which returned inconclusive. A pelvic ultrasound was requested. Patient needed 400 mg of oral ibuprofen followed by 25 g of fentanyl IV prior to the ultrasound. A UA was obtained prior to the ultrasound and is pending. 02/22/19 18:00 Results were discussed with the patient, and her care was turned over to Dr. Han pending formal ultrasound result and UA result. She was feeling better after the IV fentanyl. Departure - Departure Disposition: Home, Self-Care 01 Clinical Impression: Abdominal pain, Endometritis - Discharge Information Instructions: Abdominal Pain, Adult, [id number] Referrals: Yesenia Garcia CNM [Primary Care Provider] - Forms: ED Department Discharge Care Plan Goals: send records with pt and she will go to [place] and see OBGYN as arranged by her relative. <Kristen Han - Last Filed: 02/24/19 00:53> ED ROS GENERAL - Review of Systems Review Of Systems: See Below ED EXAM, GI/ABD - Physical Exam Exam: See Below Course - Re-Assessments/Exams Free Text/Narrative Re-Assessment/Exam: 02/22/19 19:20 US was read by the radiologist and there appears to be some complex fluid in the uterus. She does have rbcs in the urine but the pt is still spotting. She does have a small stone in the kidney on the rt but nothing was seen on the left. She has a family member who is a sausage wrapper and He has made arrangements for the pt to be seen this pm by metaphysics teacher. Will send all records with the pt . The US and the Cat scan will be placed on Disc. This is not a definite referal through me but with her family member who is a sausage wrapper. Will treat as a possible endometritis and give her rocephen 1 gm prior to leaving the facility. pranav prepare all records. Departure - Departure Time of Disposition: 19:25 Condition: Fair
[2019-02-22] MEDS ORDERED: Sodium Chloride 0.9% 10 ML Syringe FLUSH ONE (15:09)
[2019-02-22] MEDS ORDERED: Sodium Chloride 0.9% 100 ML IV SCH (15:15)
[2019-02-22] MEDS ORDERED: Iopamidol 612 MG/ML 100 ML Bottle IV SCH (15:15)
--- NOTE | 2019-02-22 16:22 | CRLCT ---
INDICATION: lower abdominal pain Indication: Lower abdominal pain. Technique: CT of the abdomen and pelvis. 100 cc of Isovue-300 IV. Coronal/sagittal reconstruction images. Comparison: None. Findings: Lung bases: Small, bilateral pleural effusions. These are seen best on image 20 of series 2. These appear non loculated. No pericardial effusion. There is passive atelectasis adjacent to the pleural effusions. There is no basilar pneumothorax. Abdomen/pelvis: Numerous benign hepatic cysts. No inflammatory changes adjacent to the gallbladder. Normal caliber biliary tree. No pancreatic mass, pancreatic duct dilation, or glandular atrophy. Spleen size is normal. No adrenal mass. No hydronephrosis. 1-2 millimeter stone in the right kidney on image 58, series 2. No delayed nephrogram. No perinephric fluid collection. Urinary bladder is normal. No adnexal mass. There is distension of the endometrial cavity, which measures up to 33 millimeters in transverse dimension. This may be correlated with pelvic ultrasound, and any history of vaginal bleeding. There is a low-density, 11 millimeter lesion in the uterine corpus on image 101 of series 2, which may represent a fibroid. There is no pneumatosis. There is no portal venous gas. There are no inflammatory changes adjacent to the appendix. The appendix is seen best on image 87 of series 2. The appendix is also well seen on image 39 of series 3. There is no appendicoliths. There is no abdominal aortic aneurysm. The visceral artery branches are patent. No adenopathy is seen by size criteria in the pelvis, retroperitoneum, or gastrohepatic ligament. The bone windows demonstrate no lytic or blastic bone lesions. The alignment is preserved. On sagittal reconstruction images, the vertebral body heights are maintained. Impression: 1. Normal caliber appendix. No adjacent inflammatory changes. 2. No evidence of a small bowel or colonic obstruction. 3. Distention of the endometrial cavity, which may be correlated with pelvic ultrasound and any history of recent vaginal bleeding. No adnexal mass. By report, the patient has undergone a recent , and retained products of conception are included in the differential diagnosis but 4. Small, bilateral pleural effusions, non loculated. 5. Report called to Dr. Orozco, emergency department, 02/22/2019, 1620 hours. Dictated by Tomas Hagen MD @ 02/22/2019 4:21:34 PM Please note that all CT scans at this facility use dose modulation, iterative reconstruction, and/or weight-based dosing when appropriate to reduce radiation dose to as low as reasonably achievable. Dictated by: Tomas Hagen MD @ 02/22/2019 16:21:44 (Electronically Signed)
[2019-02-22] MEDS ORDERED: Ibuprofen 400 MG Tab PO ONE (16:24)
[2019-02-22] MEDS ORDERED: fentaNYL 100 MCG/2 ML SDV IVPUSH ONE (16:37)
--- NOTE | 2019-02-22 19:06 | CRLUS ---
INDICATION: Thickened endometrium post section 3 weeks prior with vaginal bleeding TECHNIQUE: Ultrasound pelvis transvaginal only COMPARISON: 03/06/2014 FINDINGS: Uterus: 9.1 centimeter x 6.1 centimeter x 6.6 centimeter. Normal echotexture of the myometrium. No masses. Endometrium: Endometrium measures 4-5 millimeters in thickness and contains complex fluid with no evidence for hypervascularity. Right ovary: 6 to 0.7 centimeter x 1.8 centimeter x 1.4 centimeter. No ovarian or adnexal masses. Normal arterial and venous blood flow. Left ovary: The left ovary is not visualized. Cul-de-sac: No significant free fluid. IMPRESSION: Complex fluid present within the endometrial canal with no associated hypervascularity. Findings are nonspecific, blood products cannot be excluded. Dictated by Alex Colon MD @ 02/22/2019 7:03:13 PM Dictated by: Alex Colon MD @ 02/22/2019 19:03:57 (Electronically Signed)
[2019-02-22] MEDS ORDERED: cefTRIAXone 1 GM in Sodium Chloride 0.9% 50 ML IV ONE (19:19)
--- NOTE | 2019-02-27 09:17 | CRLUS ---
Final Report: INDICATION: Thickened endometrium post section 3 weeks prior with vaginal bleeding TECHNIQUE: Ultrasound pelvis transvaginal only COMPARISON: 03/06/2014 FINDINGS: Uterus: 9.1 centimeter x 6.1 centimeter x 6.6 centimeter. Normal echotexture of the myometrium. No masses. Endometrium: Endometrium measures 4-5 millimeters in thickness and contains complex fluid with no evidence for hypervascularity. Right ovary: 6 to 0.7 centimeter x 1.8 centimeter x 1.4 centimeter. No ovarian or adnexal masses. Normal arterial and venous blood flow. Left ovary: The left ovary is not visualized. Cul-de-sac: No significant free fluid. IMPRESSION: Complex fluid present within the endometrial canal with no associated hypervascularity. Findings are nonspecific, blood products cannot be excluded. Dictated by Alex Colon MD @ 02/22/2019 7:03:13 PM Dictated by: Alex Colon MD @ 02/22/2019 19:03:57 Signed by: Alex Colon MD @02/22/2019 7:03:57 PM (Electronic Signature) MTDD
== END 2019-02-22 20:04 | disposition home or self-care (01) ==
LOC: JP.ED 14:00
DX: N80.9 Endometriosis, unspecified (principal); Z88.8 Allergy status to other drugs, medicaments and biological substances
CPT/HCPCS: 36415; 74177; 76830; 76857; 80053; 81001; 85025; 87086; 96365; 96375; 99284; A9270; J0696; J3010; J7030; J7050; Q9967